=== PATIENT | female | born 1985 | race Caucasian/White ===

== ENCOUNTER 2017-04-06 21:57 | Emergency (ER) | payer BC ==
--- NOTE | 2017-04-06 23:18 | ED.PDOC ---
History of Present Illness - General Chief Complaint: Allergic Reaction Stated Complaint: itching/felt warmth all over Time Seen by Provider: 04/06/17 21:57 Exam Limitations: no limitations - History of Present Illness Initial Comments: Carine Allison 31 y/o female stated that while she was in her backyard tonight she had sudden onset of itching all over,felt warmth.and some sob.Had same symptoms last year and was prescribed epipen.Took benadryl which relieved most of her itching. Timing/Duration: 4-6 hours Severity: moderate Improving Factors: nothing Worsening Factors: nothing Associated Symptoms: rash, shortness of breath Allergies/Adverse Reactions: Allergies NO KNOWN ALLERGY Allergy (Verified 04/06/17 22:25) Home Medications: Ambulatory Orders Epinephrine [Epipen 2-Travis] 0.3 mg IJ ONCE PRN #1 ml 04/06/17 Xyzal Allergy 24Hr 04/06/17 predniSONE 10 mg PO BID #10 tab 04/06/17 Review of Systems - Review of Systems Constitutional: States: no symptoms reported EENTM: States: no symptoms reported Respiratory: States: no symptoms reported Cardiology: States: no symptoms reported Gastrointestinal/Abdominal: States: no symptoms reported Genitourinary: States: no symptoms reported Musculoskeletal: States: no symptoms reported Skin: States: see HPI Neurological: States: no symptoms reported Endocrine: States: no symptoms reported Hematologic/Lymphatic: States: no symptoms reported Past Medical History (General) - Patient Medical History Hx Congestive Heart Failure: No Hx Diabetes: No Hx Renal Disease: No Surgical History: no surgical history - Vaccination History Hx Tetanus, Diphtheria Vaccination: Yes Hx Influenza Vaccination: Yes Hx Pneumococcal Vaccination: Yes Immunizations Up to Date: Yes - Social History Hx Tobacco Use: No Hx Alcohol Use: No Hx Substance Use: No Hx Substance Use Treatment: No Hx Depression: No Feels Threatened In Home Enviroment: No Feels Threatened In a Relationship: No Hx Physical Abuse: No Hx Emotional Abuse: No Hx Suspected Abuse: No - Activities of Daily Living Hospice Agency (if applicable):: None - Female History Patient is a Female of Child Bearing Age (10 -59 yrs old): Yes Hx Last Menstrual Period: 04/06/17 Patient : No Expected Date of Delivery:: 03/07/14 Family Medical History - Family History Mother Family History: No Known Living Status: Still Living Physical Exam - Physical Exam General Appearance: Alert, No apparent distress Eye Exam: bilateral normal Ears, Nose, Throat: hearing grossly normal, normal ENT inspection, normal pharynx Neck: non-tender, full range of motion, supple Respiratory: chest non-tender, lungs clear, normal breath sounds, no respiratory distress Cardiovascular/Chest: normal peripheral pulses, regular rate, rhythm, no murmur Peripheral Pulses: radial,right: 1+, radial,left: 1+ Gastrointestinal/Abdominal: normal bowel sounds, non tender, soft, no organomegaly Back Exam: normal inspection, no CVA tenderness, no vertebral tenderness Extremity: normal range of motion, non-tender, normal inspection, no pedal edema , no calf tenderness Neurologic: alert, oriented x 3 Skin Exam: normal color, warm/dry, rash - mild torso Lymphatic: no adenopathy Progress - Progress Progress: 04/06/17 23:23 Vital Signs - 8 hr 04/06/17 21:57 Temperature 97 F L Pulse Rate [ 86 monitor] Respiratory 17 Rate Blood Pressure 132/83 [left upper arm ] O2 Sat by Pulse 97 Oximetry - EKG/XRAY/CT CT Ordered: No Departure - Departure Clinical Impression: Allergic reaction Qualifiers: Encounter type: initial encounter Qualified Code(s): T78.40XA - Allergy, unspecified, initial encounter Time of Disposition: 23:24 Disposition: Discharge to Home or Self Care Condition: Good Departure Forms: ED Discharge - Pt. Copy, Patient Portal Self Enrollment Instructions: DI for General Allergic Reactions Referrals: Frank Barron MD [Primary Care Provider] - 1-2 Weeks Prescriptions: Epinephrine [Epipen 2-Travis] 0.3 mg IJ ONCE PRN #1 ml PRN Reason: Allergies predniSONE 10 mg PO BID #10 tab Home Medications: Ambulatory Orders Epinephrine [Epipen 2-Travis] 0.3 mg IJ ONCE PRN #1 ml 04/06/17 Xyzal Allergy 24Hr 04/06/17 predniSONE 10 mg PO BID #10 tab 04/06/17 Additional Instructions: Continue with Benadryl 25(otc) 2 capsules by mouth 3 x a day for itching, Ranitidine(otc) one tablet am/pm for 5 days RETURN TO EMERGENCY ROOM NEEDED Follow up with primary md in one week call for appointment
[2017-04-06] MEDS ORDERED: predniSONE 10 MG TAB PO ONE (23:21)
[2017-04-06] MEDS ORDERED: DEXAMETHASONE INJ 4 MG/ML VIAL IM ONE (23:55)
[2017-04-07 00:53] VITALS: BP 107/72; TEMP 97.2; O2SAT 100
== END 2017-04-07 00:30 | disposition home or self-care (01) ==
LOC: ER 21:57
DX: T78.40XA Allergy, unspecified, initial encounter (principal); X58.XXXA Exposure to other specified factors, initial encounter
CPT/HCPCS: J1100; J7512

== ENCOUNTER → 2017-09-06 | Outpatient (CLI) | payer BC | LOC: EDSTATUS 09:05 → GMAM 10:44 | PROVIDERS: ATTEND Family Medicine | DX: F32.9 Major depressive disorder, single episode, unspecified (principal) ==

== ENCOUNTER → 2018-08-26 | Outpatient (CLI) | payer BC | LOC: GMAM 11:24 | PROVIDERS: ATTEND Family Medicine | DX: Z00.00 Encounter for general adult medical examination without abnormal findings (principal) ==

== ENCOUNTER 2019-01-19 13:57 | Emergency (ER) | payer BC, OTHER ==
[2019-01-19 14:07] VITALS: O2SAT 99
[2019-01-19] MEDS ORDERED: SODIUM CHLORIDE 0.9% 1000ML 1,000 ML IVS ONE (14:07)
[2019-01-19] MEDS ORDERED: MAGNESIUM SULFATE PREMIX 2GM 2 GM in PREMIX BAG 1 BAG IVPB ONE (14:41)
[2019-01-19] MEDS ORDERED: POTASSIUM CHLORIDE ELIXIR 20 MEQ/15 ML UD PO ONE (14:41)
[2019-01-19] MEDS ORDERED: MAGNESIUM SULFATE PREMIX 2GM 50 ML IVPB ONE (14:48)
--- NOTE | 2019-01-19 14:58 | ED.PDOC ---
History of Present Illness - General Chief Complaint: General Stated Complaint: muscle cramping Time Seen by Provider: 01/19/19 14:06 Source: patient Exam Limitations: no limitations - History of Present Illness Initial Comments: the patient is a 33-year-old female that got sick while running today. The patient does jog frequently. Today she did do a little more than normal and it was higher. She got sick at her stomach and then started getting cramping in her extremities. EMS was called and started an IV. By the time she arrived here at the cramping has resolved as well as the nausea. She is normothermic here. She is alert and oriented. Timing/Duration: 1/2 hour Severity: moderate Improving Factors: nothing Worsening Factors: nothing Associated Symptoms: malaise, nausea/vomiting Allergies/Adverse Reactions: Allergies NO KNOWN ALLERGY Allergy (Verified 04/06/17 22:25) Home Medications: Ambulatory Orders Epinephrine [Epipen 2-Travis] 0.3 mg IJ ONCE PRN #1 ml 04/06/17 Levocetirizine Dihydrochloride [Xyzal Allergy 24Hr] 5 mg PO DAILY 04/06/17 Escitalopram [Lexapro] 10 mg PO DAILY 01/19/19 Magnesium Oxide 400 mg PO DAILY #14 cap 01/19/19 Potassium Chloride [Potassium Chloride ER] 10 meq PO DAILY #14 tab 01/19/19 Review of Systems - Review of Systems Constitutional: States: no symptoms reported EENTM: States: no symptoms reported Respiratory: States: no symptoms reported Cardiology: States: no symptoms reported Gastrointestinal/Abdominal: States: see HPI Genitourinary: States: no symptoms reported Musculoskeletal: States: see HPI Skin: States: no symptoms reported Neurological: States: no symptoms reported Endocrine: States: no symptoms reported All other Systems: No Change from Baseline Past Medical History (General) - Patient Medical History Hx Stroke: No Hx Asthma: No Hx Congestive Heart Failure: No Hx Diabetes: No Hx Renal Disease: No - Vaccination History Hx Tetanus, Diphtheria Vaccination: Yes Hx Influenza Vaccination: Yes Hx Pneumococcal Vaccination: Yes - Social History Hx Tobacco Use: No Hx Alcohol Use: No Hx Substance Use: No Hx Substance Use Treatment: No Hx Depression: No Hx Physical Abuse: No Hx Emotional Abuse: No Hx Suspected Abuse: No - Female History Patient is a Female of Child Bearing Age (10 -59 yrs old): Yes Hx Last Menstrual Period: 04/06/17 Patient : No Expected Date of Delivery:: 03/07/14 Family Medical History - Family History Mother Family History: No Known Living Status: Still Living Physical Exam - Physical Exam General Appearance: Alert, Comfortable, No apparent distress Eye Exam: bilateral normal Ears, Nose, Throat: normal ENT inspection, normal pharynx Neck: full range of motion, supple Respiratory: lungs clear, normal breath sounds, no respiratory distress, no accessory muscle use Cardiovascular/Chest: normal peripheral pulses, regular rate, rhythm, no edema Peripheral Pulses: radial,right: 2+, radial,left: 2+, dorsalis pedis,right: 2+, dorsalis pedis,left: 2+ Gastrointestinal/Abdominal: non tender, soft Rectal Exam: deferred Back Exam: no CVA tenderness, no vertebral tenderness Extremity: non-tender, normal inspection, no pedal edema, normal capillary refill 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 She has received a liter of IV fluids. She does have a mildly low potassium and a mildly low magnesium and Will be written for low dose supplements for the next few weeks. She does need to get levels rechecked in a couple of weeks. She needs to increase her fluid intake. She needs to avoid overheating for the next couple of weeks. Follow-up with primary care doctor in a couple of weeks. ER warnings were given for any worsening. Departure - Departure Clinical Impression: Hypokalemia, Hypomagnesemia Heat exhaustion Qualifiers: Encounter type: initial encounter Qualified Code(s): T67.5XXA - Heat exhaustion, unspecified, initial encounter Disposition: Discharge to Home or Self Care Condition: Fair Departure Forms: ED Discharge - Pt. Copy, Patient Portal Self Enrollment Instructions: Heat Exhaustion and Heat Stroke (DC), Hypokalemia (DC) Diet: regular diet Activity: increase activity as tolerated Referrals: Frank Barron MD [Primary Care Provider] - 1-2 Weeks Prescriptions: Magnesium Oxide 400 mg PO DAILY #14 cap Potassium Chloride [Potassium Chloride ER] 10 meq PO DAILY #14 tab Home Medications: Ambulatory Orders Epinephrine [Epipen 2-Travis] 0.3 mg IJ ONCE PRN #1 ml 04/06/17 Levocetirizine Dihydrochloride [Xyzal Allergy 24Hr] 5 mg PO DAILY 04/06/17 Escitalopram [Lexapro] 10 mg PO DAILY 01/19/19 Magnesium Oxide 400 mg PO DAILY #14 cap 01/19/19 Potassium Chloride [Potassium Chloride ER] 10 meq PO DAILY #14 tab 01/19/19 Additional Instructions: the patient's 33-year-old female presenting with what appears to be mild heat exhaustion. She has received a liter of IV fluids. She does have a mildly low potassium and a mildly low magnesium and Will be written for low dose supplements for the next few weeks. She does need to get levels rechecked in a couple of weeks. She needs to increase her fluid intake. She needs to avoid overheating for the next couple of weeks. Follow-up with primary care doctor in a couple of weeks. ER warnings were given for any worsening.
[2019-01-19 19:34] VITALS: BP 113/64; TEMP 99.1
== END 2019-01-19 16:02 | disposition home or self-care (01) ==
LOC: ER 13:57
DX: T67.5XXA Heat exhaustion, unspecified, initial encounter (principal); E87.6 Hypokalemia; E83.42 Hypomagnesemia; R11.2 Nausea with vomiting, unspecified
CPT/HCPCS: 80053; 83735; 85025; J3475

== ENCOUNTER 2019-07-27 17:33 | Emergency (ER) | payer SELFPAY ==
[2019-07-27] MEDS ORDERED: LACTATED RINGERS 1,000 ML ONE (17:55)
[2019-07-27] MEDS ORDERED: LACTATED RINGERS 1,000 ML IVS ONE (17:56)
--- NOTE | 2019-07-27 17:56 | ED.PDOC ---
History of Present Illness - General Chief Complaint: Neuro Symptoms/Deficits Time Seen by Provider: 07/27/19 17:53 Source: patient, family Exam Limitations: no limitations - History of Present Illness Initial Comments: 33 yo F with PMH sig for depression who presents after an episode of syncope. Pt states she was running and started to feel lightheaded, she then began to hyperventilate and become tremulous. As similar episodes have happened in the past, she called her ex- to come and get her. Pt states she is a little foggy on the details but her sister who was talking to her ex- and son who arrived on scene said she became unresponsive and vomited. She came too at some point en route; sister who is an anesthesiologist was in the ambulance with her, states she did not appear postictal. Pt states she feels fine at this time except for continued tremulousness. On one previous episode was seen in ED, told she had an electrolyte disorder and was treated and d/c home. Denies f/c, SCHWARZ, CP, SOB, abd pain, diarrhea, urinary sx, weakness, numbness, change in vision, bowel or bladder incontinence, tongue biting. Allergies/Adverse Reactions: Allergies NO KNOWN ALLERGY Allergy (Verified 04/06/17 22:25) Home Medications: Ambulatory Orders Epinephrine [Epipen 2-Travis] 0.3 mg IJ ONCE PRN #1 ml 04/06/17 Levocetirizine Dihydrochloride [Xyzal Allergy 24Hr] 5 mg PO DAILY 04/06/17 Escitalopram [Lexapro] 10 mg PO DAILY 01/19/19 Magnesium Oxide 400 mg PO DAILY #14 cap 01/19/19 Potassium Chloride [Potassium Chloride ER] 10 meq PO DAILY #14 tab 01/19/19 Review of Systems - Review of Systems Constitutional: Denies: chills, fever EENTM: Denies: blurred vision, double vision, nose congestion, throat pain Respiratory: Denies: cough, orthopnea, short of breath, stridor, wheezing Cardiology: States: syncope. Denies: chest pain, edema, palpitations Gastrointestinal/Abdominal: States: vomiting. Denies: abdominal pain, constipation, diarrhea Genitourinary: Denies: dysuria, frequency, hematuria Musculoskeletal: Denies: back pain, neck pain Skin: Denies: lesions, rash Neurological: States: other - Tremulous. Denies: headache, numbness, seizure, weakness Endocrine: Denies: increased thirst, increased urine Past Medical History (General) - Patient Medical History Hx Stroke: No Hx Asthma: No Hx Congestive Heart Failure: No Hx Diabetes: No Hx Renal Disease: No - Vaccination History Hx Tetanus, Diphtheria Vaccination: Yes Hx Influenza Vaccination: Yes Hx Pneumococcal Vaccination: Yes - Social History Hx Tobacco Use: No Hx Alcohol Use: No Hx Substance Use: No Hx Substance Use Treatment: No Hx Depression: No Hx Physical Abuse: No Hx Emotional Abuse: No Hx Suspected Abuse: No - Female History Hx Last Menstrual Period: 04/06/17 Patient : No Expected Date of Delivery:: 03/07/14 Family Medical History - Family History Mother Family History: No Known Living Status: Still Living Physical Exam - Physical Exam General Appearance: Alert, No apparent distress, Well Developed, Well Nourished Eye Exam: bilateral normal Ears, Nose, Throat: hearing grossly normal, normal ENT inspection, normal pharynx Neck: non-tender, full range of motion, supple, normal inspection Respiratory: chest non-tender, lungs clear, normal breath sounds, no respiratory distress, no accessory muscle use Cardiovascular/Chest: normal peripheral pulses, regular rate, rhythm, no edema, no gallop, no JVD, no murmur Peripheral Pulses: radial,right: 2+, radial,left: 2+ Gastrointestinal/Abdominal: normal bowel sounds, non tender, soft, no orga nomegaly, no pulsatile mass, abnormal bowel sounds Back Exam: normal inspection, no CVA tenderness, no vertebral tenderness Extremity: normal range of motion, non-tender, normal inspection, no pedal edema 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 07/27/19 20:09 I have explained and reviewed all results with the pt. Pt states she feels fine, would like to be d/c home. Pt and family comfortable with d/c home. I explained that emergent conditions may arise and to return to the ER for new, worsening, or any persistent conditions. I've explained the importance of f/u for recheck. All questions and concerns addressed at this time. Pt understands and agrees with plan. Pt well appearing, NAD, is stable for discharge. Chandni Whitmore MD Emergency Medicine Physician Billing Number [id number] - Results/Orders Results/Orders: 07/27/19 18:15 EKG STAT Laboratory Results - last 24 hr 07/27/19 07/27/19 07/27/19 17:30 17:30 17:30 WBC 10.5 RBC 4.76 Hgb 14.1 Hct 41.7 MCV 87.6 MCH 29.7 MCHC 33.9 RDW 12.2 Plt Count 457 H MPV 7.5 Absolute Neuts (auto) 3.50 Absolute Lymphs (auto) 6.20 H Absolute Monos (auto) 0.70 Absolute Eos (auto) 0.00 Absolute Basos (auto) 0.00 Neutrophils % 33.5 L Lymphocytes % 59.7 H Monocytes % 6.3 Eosinophils % 0.3 L Basophils % 0.2 Normal RBC Morphology 2+platelet clumps Sodium 142 Potassium 3.0 L Chloride 105 Carbon Dioxide 21 Anion Gap 19.0 H BUN 18 Creatinine 1.17 BUN/Creatinine Ratio 15.4 Random Glucose 110 H Serum Osmolality 285.7 Calcium 9.8 Phosphorus 3.4 Magnesium 1.9 Total Bilirubin 0.9 AST 25 ALT 13 Alkaline Phosphatase 69 Serum Total Protein 8.2 Albumin 4.5 Globulin 3.7 H Albumin/Globulin Ratio 1.2 Serum HCG, Qual Urine HCG, Qual 07/27/19 17:30 WBC RBC Hgb Hct MCV MCH MCHC RDW Plt Count MPV Absolute Neuts (auto) Absolute Lymphs (auto) Absolute Monos (auto) Absolute Eos (auto) Absolute Basos (auto) Neutrophils % Lymphocytes % Monocytes % Eosinophils % Basophils % Normal RBC Morphology Sodium Potassium Chloride Carbon Dioxide Anion Gap BUN Creatinine BUN/Creatinine Ratio Random Glucose Serum Osmolality Calcium Phosphorus Magnesium Total Bilirubin AST ALT Alkaline Phosphatase Serum Total Protein Albumin Globulin Albumin/Globulin Ratio Serum HCG, Qual Negative Urine HCG, Qual Cancelled CT head: EXAM: Head CLINICAL INDICATION: 33-year-old female with syncope versus seizure. COMPARISON: None. TECHNIQUE: CT brain without contrast. This exam was performed according to our departmental dose optimization program which includes use of automated exposure control, adjustment of the mA and/or kV according to patient size and/or use of iterative reconstruction technique. FINDINGS: The ventricles, sulci, and cisterns are within normal limits. The gomez-white matter differentiation is preserved. There is no mass effect, midline shift, intra- or extra-axial fluid collection/acute hemorrhage. The osseous structures are unremarkable. The paranasal sinuses and mastoid air cells are clear. IMPRESSION: No acute intracranial abnormalities. Electronically signed by: Taty Da Silva MD 07/27/2019 7:41 PM MARKETING DEVELOPMENT REPRESENTATIVE - EKG/XRAY/CT EKG: Sinus Comments: Sinus arrhythmia; T wave flattening III, V2; T wave inversion V3 Departure - Departure Clinical Impression: Hypokalemia Syncope Qualifiers: Syncope type: unspecified Qualified Code(s): R55 - Syncope and collapse Time of Disposition: 20:06 Disposition: Discharge to Home or Self Care Health Concerns: Condition: stable Departure Forms: ED Discharge - Pt. Copy, Patient Portal Self Enrollment Instructions: Syncope (Fainting) (DC) Referrals: Frank Barron MD [Primary Care Provider] - 1-2 Days Home Medications: Ambulatory Orders Epinephrine [Epipen 2-Travis] 0.3 mg IJ ONCE PRN #1 ml 04/06/17 Levocetirizine Dihydrochloride [Xyzal Allergy 24Hr] 5 mg PO DAILY 04/06/17 Escitalopram [Lexapro] 10 mg PO DAILY 01/19/19 Magnesium Oxide 400 mg PO DAILY #14 cap 01/19/19 Potassium Chloride [Potassium Chloride ER] 10 meq PO DAILY #14 tab 01/19/19 Additional Instructions: Follow up with: Cardiology and Neurology this week [facility] As needed, if symptoms worsen
[2019-07-27] MEDS ORDERED: POTASSIUM CHLORIDE 20 MEQ TAB PO ONE ×2 (19:06→20:10)
[2019-07-27 19:37] VITALS: TEMP 97.1
--- NOTE | 2019-07-27 19:43 | CT ---
EXAM: Head CLINICAL INDICATION: 33-year-old female with syncope versus seizure. COMPARISON: None. TECHNIQUE: CT brain without contrast. This exam was performed according to our departmental dose optimization program which includes use of automated exposure control, adjustment of the mA and/or kV according to patient size and/or use of iterative reconstruction technique. FINDINGS: The ventricles, sulci, and cisterns are within normal limits. The gomez-white matter differentiation is preserved. There is no mass effect, midline shift, intra- or extra-axial fluid collection/acute hemorrhage. The osseous structures are unremarkable. The paranasal sinuses and mastoid air cells are clear. IMPRESSION: No acute intracranial abnormalities. Electronically signed by: Taty Da Silva MD 07/27/2019 7:41 PM ASSISTANT ATTORNEY GENERAL
[2019-07-27 20:26] VITALS: BP 123/61; O2SAT 97
== END 2019-07-27 20:29 | disposition home or self-care (01) ==
LOC: ER 17:33
DX: R55 Syncope and collapse (principal); E87.6 Hypokalemia; R11.10 Vomiting, unspecified; F32.9 Major depressive disorder, single episode, unspecified; Z79.899 Other long term (current) drug therapy
CPT/HCPCS: 70450; 80053; 83735; 84100; 84703; 85025; 93005; J7120

== ENCOUNTER → 2019-07-29 | Outpatient (CLI) | payer OTHER | LOC: GMAM 16:59 | PROVIDERS: ATTEND Family Medicine | DX: E87.6 Hypokalemia (principal); R55 Syncope and collapse; Z79.899 Other long term (current) drug therapy ==

== ENCOUNTER → 2019-08-06 | Outpatient (CLI) | payer OTHER | LOC: RESP 07:55 | PROVIDERS: ATTEND Family Medicine | DX: R55 Syncope and collapse (principal); Z79.899 Other long term (current) drug therapy ==

== ENCOUNTER → 2019-08-18 | Outpatient (CLI) | payer OTHER | LOC: GMAM 14:27 | PROVIDERS: ATTEND Family Medicine | DX: E83.42 Hypomagnesemia (principal) ==

== ENCOUNTER → 2020-07-20 | Outpatient (CLI) | payer OTHER | LOC: YCFC.O 16:09 | PROVIDERS: ATTEND Family Medicine | DX: Z20.828 Contact with and (suspected) exposure to other viral communicable diseases (principal) ==

== ENCOUNTER → 2020-07-29 | Outpatient (CLI) | payer OTHER | LOC: YCFC.O 09:02 | PROVIDERS: ATTEND Nurse Practitioner Family | DX: Z20.828 Contact with and (suspected) exposure to other viral communicable diseases (principal) ==